=== PATIENT | male | born 1990 | race Caucasian/White ===

== ENCOUNTER 2018-06-16 21:24 | Emergency (ER) | payer OTHER ==
[2018-06-17] MEDS: KETOROLAC 60 MG INJ IM (00:39)
== END 2018-06-17 02:21 | disposition home or self-care (01) ==
LOC: FTE 21:24
DX: M25.552 Pain in left hip (principal); Z87.891 Personal history of nicotine dependence
CPT/HCPCS: 73510; 96372; 99284-25